=== PATIENT | female | born 1940 | race Caucasian/White ===

== ENCOUNTER 2017-07-13 07:35 | Emergency (ER) | payer MEDICARE, BC ==
[~2017-07-13] VITALS: Ht 142.2 cm; Wt 64.4 kg
[~2017-07-13 07:35] MED LIST: ADULT LOW DOSE81 MG PO; APAP650 PO; CALCIUM PO; CENTRUM SILVER1 EAC1 PO; FISH OIL 1,0001 EAC5 PO; HYDROCHLOROTHIA25 M1 PO; INSULIN NOVOLOG; LANTUS SC; LASIX 20 MG TAB20 MG PO; LIPITOR PO; LISINOPRIL PO; MAG-OX 400 TAB400 M1 PO; MAGNES PO; NAPROSYN375 MG PO; NOVOLOG100 UNIT/1; NOVOLOG100 UNIT/1 SQ; PROTONIX40 M2 PO; REGULAR INSULIN; SEE COMMENTS; SYNTHROID PO; VITAMIN D250000 UNIT PO; [UNRECOGNIZED DRUG - OTHER]
[2017-07-13] MEDS ORDERED: VITAMIN D3400 UNIT PO (08:00)
[2017-07-13] MEDS ORDERED: FOLIC ACID1 MG PO (08:01)
[2017-07-13] MEDS ORDERED: NORCO 5-325 TA1 EACH PO (08:05)
[2017-07-13 08:42] VITALS: BP 123/57
== END 2017-07-13 08:43 | disposition home or self-care (01) ==
LOC: M.ERS 07:35
DX: S86.811A Strain of other muscle(s) and tendon(s) at lower leg level, right leg, initial encounter (principal); M25.461 Effusion, right knee; E11.9 Type 2 diabetes mellitus without complications; M19.90 Unspecified osteoarthritis, unspecified site; I10 Essential (primary) hypertension; E03.9 Hypothyroidism, unspecified; Z90.49 Acquired absence of other specified parts of digestive tract; Z79.4 Long term (current) use of insulin; W22.03XA Walked into furniture, initial encounter; Y93.89 Activity, other specified; Y92.89 Other specified places as the place of occurrence of the external cause; Y99.8 Other external cause status

== ENCOUNTER 2019-03-13 18:02 | Emergency (ER) | payer MEDICARE, BC ==
[~2019-03-13] VITALS: Ht 139.7 cm; Wt 58.5 kg
[~2019-03-13 18:02] MED LIST changes: +FOLIC ACID1 MG PO; -LANTUS SC; +LANTUS SUBQ; +NORCO 5-325 TA1 EACH PO; -SYNTHROID PO; +SYNTHROID75 MCG PO; +VITAMIN D3400 UNIT PO
[2019-03-13] MEDS ORDERED: HUMULINR100 SUBQ (18:29)
[2019-03-13] MEDS ORDERED: COREG6.25 MG PO (18:30)
[2019-03-13] MEDS ORDERED: FOSAMAX 70 MG T70 MG PO (18:30)
[2019-03-13 20:07] LABS: ABSOLUTE EOSINOPHILS 0.1 thou/uL (0.0-0.7); ABSOLUTE LYMPHOCYTES 1.6 thou/uL (0.8-5.3); ABSOLUTE MONOCYTES 1.1 thou/uL (0.0-1.2); ABSOLUTE NEUTROPHILS 3.8 thou/uL (1.6-8.1); BASOPHILS 0.7 %; EOSINOPHILS 0.9 %; HEMATOCRIT 38.6 % (37.0-47.0); HEMOGLOBIN 12.8 gm/dL (12.0-15.0); LYMPHOCYTES 24.5 %; MCH 29.4 pg (26.0-34.0); MCHC 33.1 g/dL (28.0-37.0); MCV 88.7 fL (80.0-100.0); MONOCYTES 16.9 %; MPV 7.9 fl. (7.2-11.1); NUCLEATED RBCS 0 /100WBC; PLATELET COUNT* 220 thou/uL (150-400); RBC 4.35 mil/uL (4.20-5.00); RDW-CV 14.5 % (10.5-14.5); WBC 6.7 thou/uL (4.0-11.0)
[2019-03-13 20:15] LABS: CALCIUM 9.3 mg/dL (8.5-10.1); CREATININE 1.2 mg/dL (0.6-1.3); POTASSIUM 4.7 mmol/L (3.5-5.1)
[2019-03-13 20:19] LABS: ALBUMIN 3.3 g/dL (3.4-5.0); TOTAL BILIRUBIN 0.5 mg/dL (<0.1-1.0); TOTAL PROTEIN 7.2 g/dL (6.4-8.2)
[2019-03-13 20:57] LABS: URINE BILIRUBIN NEGATIVE (Negative); URINE BLOOD TRACE (Negative); URINE CLARITY CLEAR; URINE COLOR YELLOW; URINE GLUCOSE-RANDOM NEGATIVE (Negative); URINE KETONES NEGATIVE (Negative); URINE LEUKOCYTES-REFLEX NEGATIVE (Negative); URINE NITRITE-REFLEX NEGATIVE (Negative); URINE PROTEIN NEGATIVE (Negative); URINE SPECIFIC GRAVITY <= 1.005 (1.005-1.030); URINE UROBILINOGEN 0.2 E.U./dl (0.2-1.0)
[2019-03-13] MEDS ORDERED: MUPIROCIN1 GM TOP (21:14)
[2019-03-13] MEDS ORDERED: DOXYCYCLINE 10100 MG PO (21:14)
[2019-03-13] MEDS ORDERED: VALTREX1000 MG PO (21:14)
[2019-03-13] MEDS ORDERED: PERCOCET 7.5-31 EAC1 PO (21:14)
[2019-03-13 21:32] VITALS: BP 145/69
[2019-03-17 23:08] LABS: HSV 1 DNA Negative (Negative); HSV 2 DNA Negative (Negative)
[2019-03-18] MEDS ORDERED: TYLENOL EXTRA500 MG PO (15:07)
== END 2019-03-13 21:33 | disposition home or self-care (01) ==
LOC: M.ERS 18:02
PROVIDERS: Emergency Medicine
DX: B02.9 Zoster without complications (principal); E11.9 Type 2 diabetes mellitus without complications; I10 Essential (primary) hypertension; M19.90 Unspecified osteoarthritis, unspecified site; E03.9 Hypothyroidism, unspecified; Z90.49 Acquired absence of other specified parts of digestive tract; Z98.890 Other specified postprocedural states; Z79.4 Long term (current) use of insulin; Z88.6 Allergy status to analgesic agent; Z88.8 Allergy status to other drugs, medicaments and biological substances

== ENCOUNTER → 2019-03-26 | Outpatient (CLI) | payer MEDICARE, BC ==
[~2019-03-26] VITALS: Ht 139.7 cm; Wt 58.5 kg
[~2019-03-26] MED LIST changes: +COREG6.25 MG PO; +DOXYCYCLINE 10100 MG PO; +FOSAMAX 70 MG T70 MG PO; +HUMULINR100 SUBQ; +MUPIROCIN1 GM TOP; +PERCOCET 7.5-31 EAC1 PO; +TYLENOL EXTRA500 MG PO; +VALTREX1000 MG PO
[2019-03-26 09:05] LABS: ABSOLUTE EOSINOPHILS 0.2 thou/uL (0.0-0.7); ABSOLUTE LYMPHOCYTES 1.6 thou/uL (0.8-5.3); ABSOLUTE MONOCYTES 0.6 thou/uL (0.0-1.2); ABSOLUTE NEUTROPHILS 4.5 thou/uL (1.6-8.1); BASOPHILS 0.7 %; EOSINOPHILS 3.2 %; HEMATOCRIT 37.8 % (37.0-47.0); HEMOGLOBIN 12.6 gm/dL (12.0-15.0); LYMPHOCYTES 23.3 %; MCHC 33.3 g/dL (28.0-37.0); MCV 90.3 fL (80.0-100.0); MONOCYTES 8.6 %; MPV 7.2 fl. (7.2-11.1); NUCLEATED RBCS 0 /100WBC; PLATELET COUNT* 280 thou/uL (150-400); POLYS 64.2 %; RBC 4.19 mil/uL (4.20-5.00)
[2019-03-26 09:20] LABS: ALBUMIN 3.2 g/dL (3.4-5.0); CALCIUM 9.1 mg/dL (8.5-10.1); CREATININE 1.2 mg/dL (0.6-1.3); POTASSIUM 4.2 mmol/L (3.5-5.1); TOTAL BILIRUBIN 0.3 mg/dL (<0.1-1.0); TOTAL PROTEIN 7.1 g/dL (6.4-8.2)
[2019-03-27 02:07] LABS: GLYCOHEMOGLOBIN (HGB A1C) 8.3 % (4.8-5.6)
== END ==
LOC: M.PRE → M.LAB 08:00 → M.PRE 04-14 07:42 → EDSTATUS 04-14 17:07 → M.PRE 04-14 18:24
PROVIDERS: Orthopaedic Surgery
DX: M17.11 Unilateral primary osteoarthritis, right knee (principal); Z96.651 Presence of right artificial knee joint; Z79.899 Other long term (current) drug therapy